=== PATIENT | female | born 1980 | race Caucasian/White ===

== ENCOUNTER 2025-04-11 21:32 | Emergency (ER) | payer OTHER, SELFPAY ==
[2025-04-11 21:33] VITALS: BP 182/107; PULSE 78; RESP 16; TEMP 36.6; O2SAT 98; BMI 42.3
[2025-04-11 21:35] VITALS: BP 148/94
--- NOTE | 2025-04-11 21:35 | EKG12_ITS ---
Test Reason : CP Blood Pressure : */* mmHG Vent. Rate : 78 BPM Atrial Rate : 78 BPM P-R Int : 154 ms QRS Dur : 78 ms QT Int : 364 ms P-R-T Axes : 22 20 36 degrees QTcB Int : 414 ms Normal sinus rhythm Normal ECG Confirmed by NINI REA, YEMI ([id number]), research editor MARIA A SAHA ([id number]) on 04/14/2025 8:10:00 AM Referred By: ER Confirmed By: YEMI TERRAZAS MD
--- NOTE | 2025-04-11 22:11 | ED.VIS.CHEST ---
HPI History of Present Illness Chief Complaint: Chest Pain Informant: patient Narrative Narrative: 44-year-old female presenting with substernal nonpleuritic chest discomfort has been coming and going for the most part present for the past 3 days. She states she had severe exacerbations, but the last one she had was when it started 3 days ago. Discomfort feels like a knot, nothing sharp or tearing. She has had this in the past twice. The last time was several weeks ago, she went to an ER that is local to her, however the pain suddenly resolved while she was waiting to be seen and decided to go home and not be seen. She has yet to follow-up with her doctor but when his pain returned 3 days ago, she made appointment but cannot be seen until April. She states multiple times she has taken Gas-X, Pepcid for this discomfort which did not seem to do anything, but today when the pain was returning, she took 4 Tums tablets, and the pain did not go away but seem to just be there and relatively mild so she is not sure if it helped or not. She has never had it wake her from sleep. She denies any associated symptoms such as palpitations, diaphoresis, radiation into arm or neck or jaw, nausea or vomiting, or significant dyspnea although she states when the pain is really severe she states it tends to make her feel little short of breath. She denies any focal leg pain or swelling. No history of DVT or PE. Patient states she lives in [place] and is currently camping in this area but she has not traveled out of the state of the country recently. Recent Illness/Hospitalization: No CVD Risk Factors: Negative for Hypertension, Diabetes, Hypercholesterolemia, Family History 1' </=55 or Smoking PE Risk Factors: Negative for Recent Travel/Surgery (Last surgery was 2.5 months ago, hysterectomy), Recent Immobilization, Prior DVT or PE, Cancer or OCP + Smoking + >/=35 TAD Risk Factors: Negative for Marfan's Syndrome, Hypertension or Family History [facility] Medical History (Updated 04/12/25 @ 00:[address] Nate Xie MD) Chest pain Medical History no medical history no medical history Home Medications ?Medication ?Instructions ?Recorded ?Last Taken ?Type hyoscyamine sulfate 0.125 mg 0.25 mg (2 x 0.125 mg) sublingual 04/12/25 Unknown Rx sublingual tablet Q6H PRN abominal discomfort #12 tabs pantoprazole 40 mg tablet,delayed 40 mg PO DAILY #14 tabs 04/12/25 Unknown Rx release Allergy/AdvReac Type Severity Reaction Status Date / Time No Known Allergies Allergy Verified 04/11/25 21:33 Social History (Updated 04/11/25 @ 22:[address] Nate Xie MD) Smoking Status: Never smoker substance use type: does not use ROS ROS ED Constitutional Constitutional ED: Denies chills or fever(s) Eyes Eyes: Denies change in vision or diplopia ENT ENT ED: Denies rhinorrhea or sore throat Cardiovascular Cardiovascular: Reports as per HPI and chest pain; Denies palpitations or radiating jaw, neck or arm pain Respiratory/Chest Respiratory/Chest: Denies cough or dyspnea Gastrointestinal Gastrointestinal: Denies abdominal pain, diarrhea, nausea or vomiting Genitourinary Genitourinary ED: Denies dysuria or hematuria Musculoskeletal Musculoskeletal: Reports other Details: Chronic low back pain, mild ; Denies neck pain Integumentary Denies abscess or rash Neurologic Neurologic: Denies headache(s), paresthesias or weakness Psychiatric Psychiatric: Denies suicidal thoughts EXAM Physical Exam Const Vital Signs: 04/11/25 21:33 04/11/25 21:35 04/11/25 23:14 Temperature 97.8 F Temperature Source Oral Pulse Rate 78 74 Respiratory Rate 16 16 Blood Pressure 182/107 H 148/94 H 109/74 Blood Pressure Mean 132 112 85 Pulse Ox 98 Oxygen Delivery Method Room Air 04/12/25 00:03 Temperature Temperature Source Pulse Rate 73 Respiratory Rate Blood Pressure 114/70 Blood Pressure Mean 84 Pulse Ox Oxygen Delivery Method Positive well nourished, well developed and obese General Appearance ED: well developed and NAD Nutritional Appearance: obese HEENT Reports moist mucous membranes normocephalic and atraumatic Eyes PERRL and EOMs intact bilaterally Neck full ROM and supple Chest Wall inspection of chest normal and palpation of chest normal Resp normal respiratory effort and clear to auscultation bilaterally Cardio regular rate, regular rhythm and no murmurs Peripheral Pulses: pulses 2+ throughout GI non-tender and non-distended Auscultation: normoactive bowel sounds Palpation: soft Back/Spine no CVA tenderness General Back: other FROM Extremity normal to inspection Extremity Narrative: No calf tenderness. No palpable cords. General Extremety ED: Yes edema; Negative for pulses abnormal or tenderness General Extremity: edema bilateral lower extremity Details: trace; Negative for pulses abnormal Neuro oriented x3, CN's II-XII intact bilaterally and no sensory deficits noted Sensorium / Orientation: awake and alert Motor Exam: strength 5/5 throughout Psych Mood & Affect: anxious Skin no rashes or lesions noted and no wounds Heart Score History: Slightly/Non-Suspicious ECG: Normal Age: </= 45 years Risk Factors: No Risk Factors Troponin: </= Normal Limit Score: 0 MDM MDM MDM Narrative Medical decision making narrative: Symptoms are substernal and not unilateral, nonpleuritic, and she has no signs or symptoms of a DVT nor history of any, and her PERC score is 0. This obviates need for further workup to rule out PE causing the symptoms. The rest of her tests are normal. Her troponin is less than the low limit, and given that she has been having discomfort most of the day and a couple days before this, I do not think we need to do a second measurement in context of a normal EKG. This rules out acute coronary syndrome patient is reassured. She was little hypertensive when she arrived, but she was fairly anxious on exam and her repeat blood pressure is 114/70 without treating it. We did give her a hyoscyamine treating him. Possibility of esophageal spasm, she think she is feeling a little better but states she was not really having a lot of pain before that. And medardo give her a prescription for that in case she has more severe episodes, as well as put her on a PPI for the next 2 weeks. She states that at 1 point she was drinking some water with lemon in it and for the next few hours she was having metallic taste in the back of her mouth and that happened a couple times so this may be acid related as well. Follow-up advised with her PCP for this relatively low risk chest pain at this time. History & Record Review Additional record(s) reviewed:: No prior records Lab Data Attestation: I reviewed the patient's lab results. Labs: Laboratory Results - last 24 hr 04/11/25 22:30 WBC 8.9 RBC 4.83 Hgb 13.8 Hct 40.9 MCV 84.7 MCH 28.6 MCHC 33.7 RDW Std Deviation 40.8 RDW Coeff of Mike 13.2 Plt Count 269 MPV 9.6 Immature Gran % (Auto) 0.200 Neut % (Auto) 59.6 Lymph % (Auto) 29.6 [place] % (Auto) 6.5 Eos % (Auto) 3.4 Baso % (Auto) 0.7 Absolute Neuts (auto) 5.3 Absolute Lymphs (auto) 2.64 Nucleated RBC % 0 Sodium 138 Potassium 4.4 Chloride 102 Carbon Dioxide 24.2 Anion Gap 12 BUN 13 Creatinine 0.83 Estim Creat Clear Calc 114.62 Est GFR (MDRD) Non-Af 90 BUN/Creatinine Ratio 15.4 Glucose 114 H Calcium 9.8 Troponin T High Sens < 6 Radiography Diagnostic Testing: Clinical Impression(s) from Imaging Studies Chest X-Ray 04/11/25 22:30 IMPRESSION: No Acute Findings. Reading Location: [facility] 1 view chest x-ray my interpretation normal. EKG Initial EKG: Attestation: I personally reviewed and interpreted this EKG as follows: Interpretation: Sinus Rhythm and No Acute Injury Pattern Comments: Nml axis & intervals; nml EKG Prior EKG tracings: not available for review Prior: No Prior Discharge Plan Triage Chief Complaint: Chest Pain ED Provider: Nate Xie Dx/Rx/DC Orders Clinical Impression: Chest pain, unspecified Instructions: ED Chest Pain, Noncardiac Prescriptions: New pantoprazole 40 mg tablet,delayed release (DR/EC) 40 mg PO DAILY Qty: 14 0RF hyoscyamine sulfate 0.125 mg tablet, sublingual 0.25 mg sublingual Q6H PRN (Reason: abominal discomfort) Qty: 12 0RF Primary Care Provider: LUIS FERNANDO OLIVA Referrals: LUIS FERNANDO OLIVA [Other] - 1-2 Weeks Print Language: Yakut Disposition Disposition: Home, Self Care
--- NOTE | 2025-04-11 22:30 | RAD_ITS ---
PROCEDURE: CHEST 1 VIEW (PORTABLE) 04/11/2025 REASON FOR EXAM: CHEST PAIN TECHNIQUE: Frontal view of the chest. COMPARISON: None available. FINDINGS: Hardware: None Heart: The heart size is normal. Lungs: The lungs are clear. No pneumothorax or pleural effusion. Bones: The bones are unremarkable. RAD/Chest 1 View (Portable) IMPRESSION: No Acute Findings. Reading Location: [facility]
[2025-04-11 22:40] LABS: Hematocrit 40.9 % (37-47); Hemoglobin 13.8 g/dL (12.0-15.0); Immature Granulocytes Count 0.020 X10^3/uL (0.0-0.0); Mean Corp Hgb Conc 33.7 g/dL (32-36); Mean Corpuscular Volume 84.7 fL (81-99); Mean Platelet Vol. 9.6 fl (6.2-12.0); NRBC Flagged by Analyzer 0 % (0-5); Platelet Count 269 K/mm3 (150-450); RBC Distribution Width CV 13.2 % (11.6-14.6); RBC Distribution Width SD 40.8 fl (35.1-43.9); Red Blood Count 4.83 M/mm3 (4.2-5.4); White Blood Count 8.9 K/mm3 (4.4-11.0)
[2025-04-11 23:14] VITALS: BP 109/74; PULSE 74; RESP 16
[2025-04-11 23:15] LABS: Troponin T High Sensitivity < 6 ng/L (<=14)
[2025-04-11 23:16] LABS: Anion Gap 12 (5-15); BUN 13 mg/dL (4-19); BUN/Creat Ratio 15.4 RATIO (10-20); Calcium,Total 9.8 mg/dL (7.6-11.0); Carbon Dioxide 24.2 mmol/L (21.0-32.0); Chloride 102 mmol/L (98-108); Estimated Creatinine Clearance 114.62 ml/min (50-250); Glucose 114 mg/dL (70-99); Potassium 4.4 mmol/L (3.3-5.1)
[2025-04-12 00:03] VITALS: BP 114/70; PULSE 73
== END 2025-04-12 00:16 | disposition home or self-care (01) ==
PROVIDERS: Emergency Provider Emergency Medicine; Visit Provider Emergency Medicine
DX: R07.9 Chest pain, unspecified (principal)
CPT/HCPCS: 71045; 80048; 84484; 85025; 93005; 99284; A4216